=== PATIENT | male | born 1955 | race Caucasian/White ===

== ENCOUNTER 2025-05-05 12:25 | Inpatient (IN) | payer MEDICARE, MEDICAID ==
[~2025-05-05] VITALS: Ht 172.7 cm; Wt 79.0 kg
[2025-05-05 12:33] VITALS: O2SAT 100
[2025-05-05] MEDS: PIPERACILLIN/TAZO 3.375G/50ML 50 ML IV ONE (13:54)
[2025-05-05] MEDS: SODIUM CHLORIDE 0.9% (SEPSIS BOLUS) IV ONE (13:55)
[2025-05-05 14:15] LABS: BG BASE EXCESS -5.7 mmol/L (-2.0-3.0); BG CARBOXYHEMOGLOBIN 1.0 % (0.5-1.5); BG DEOXYHEMOGLOBIN 2.9 % (0.0-5.0); BG FRACTION INSPIRED OXYGEN 21; BG HCO3 ACT 18.2 mmol/L (21.0-28.0); BG METHEMOGLOBIN 0.3 % (0.5-1.5); BG OXYGEN SATURATION 97.1 % (94.0-98.0); BG OXYHEMOGLOBIN 95.8 % (94.0-98.0); BG PCO2 31.0 mmHg (35.0-48.0); BG PH 7.387 (7.350-7.450); BG PO2 94.6 mmHg (83.0-108.0); BG SAMPLE SITE RIGHT RADIAL; BG TOTAL HEMOGLOBIN 12.5 g/dL (13.5-17.5); BG VENT MODE ROOM AIR
[2025-05-05 14:41] LABS: BASOPHILS % 0.8 % (0.0-2.0); EOSINOPHILS % 1.9 % (0.0-5.0); HEMATOCRIT. 39.5 % (42.0-52.0); HEMOGLOBIN. 13.4 g/dL (14.0-18.0); LYMPHOCYTES % 32.9 % (20.0-50.0); MEAN PLATELET VOLUME 8.7 fl (7.4-10.4); MONOCYTES % 7.0 % (2.0-8.0); NEUTROPHILS % 57.4 % (40.0-76.0); PLATELET 242 x1000/uL (130-400); RED BLOOD CELL COUNT 4.37 mill/uL (4.7-6.1); RED CELL DISTRIBUTION WIDTH 14.0 % (11.6-14.6)
[2025-05-05 14:50] LABS: CREATININE 2.2 mg/dL (0.6-1.3); TROPONIN I HIGH SENSITIVITY 6 ng/L (3.0-53)
[2025-05-05 14:51] LABS: PROTEIN TOTAL 6.8 g/dL (6.0-8.3); UREA NITROGEN BLOOD 16 mg/dL (9-23)
[2025-05-05 14:52] LABS: ASPARTATE AMINOTRANSFERASE 29 IU/L (<34); BILIRUBIN DIRECT 0.1 mg/dL (<=3.0)
[2025-05-05 14:53] LABS: BILIRUBIN TOTAL 0.5 mg/dL (0.1-1.0)
[2025-05-05 15:06] LABS: INR 1.0
[2025-05-05 15:44] LABS: CLARITY URINE CLEAR (CLEAR); GLUCOSE URINE 3+ (NEGATIVE); KETONES URINE NEGATIVE (NEGATIVE); LEUKOCYTE ESTERASE URINE NEGATIVE (NEGATIVE); NITRITE URINE NEGATIVE (NEGATIVE); OCCULT BLOOD URINE NEGATIVE (NEGATIVE); PH URINE 5.5 (4.5-8.0); PROTEIN URINE 2+ (NEGATIVE); SPECIFIC GRAVITY URINE 1.012 (1.005-1.030); UROBILINOGEN URINE 0.2 E.U./dL (0.2-1.0)
[2025-05-05 17:13] LABS: COLOR URINE STRAW (YELLOW)
[2025-05-05] MEDS: INSULIN REGULAR (HUMULIN R) 1000UNITS/10ML VIAL SUBCUT ONE (17:21)
[2025-05-05 17:25] LABS: BACTERIA URINE NONE SEEN; MUCUS URINE 1+ /lpf (NONE/TRACE); RBC URINE NONE SEEN /hpf (0-2); SQUAMOUS EPITHELIAL CELL URINE RARE /lpf (RARE/1+); WBC URINE NONE SEEN /hpf (0-2)
[2025-05-05] MEDS: MORPHINE SULFATE 4 MG/ML INJ (FOR IV/IM USE) IV ONE (17:30)
[2025-05-05] MEDS: ONDANSETRON HCL 4MG/2ML INJ IV ONE (17:30)
[2025-05-05 21:30] VITALS: BP 161/82; PULSE 81; RESP 20; TEMP 36.9; O2SAT 98
[2025-05-05] MEDS ORDERED: IOHEXOL-350 100 ML BOTTLE ONE (21:53)
[2025-05-05] MEDS ORDERED: ASPI-1497 MT (22:47)
[2025-05-05] MEDS ORDERED: ATOR20TA MT (22:47)
[2025-05-05] MEDS ORDERED: SODI325T PO (22:47)
[2025-05-05] MEDS ORDERED: LISI10TA26 MT (22:47)
[2025-05-05] MEDS ORDERED: INSU100I28 SQ (22:47)
[2025-05-05 23:04] VITALS: BP 161/82; PULSE 81; RESP 20; TEMP 36.974
[2025-05-05] MEDS ORDERED: PNEUMOCOCCAL 20-VAL CONJ-DIP CRM 0.5ML IM ONE (23:15)
[2025-05-05] MEDS ORDERED: ZOLPIDEM TARTRATE 5MG TABLET PO PRN (23:45)
[2025-05-05] MEDS ORDERED: ACETAMINOPHEN 325MG TABLET PO PRN (23:45)
[2025-05-05] MEDS ORDERED: ONDANSETRON HCL 4MG/2ML INJ IV PRN (23:45)
[2025-05-05] MEDS ORDERED: MAGNESIUM/ALUMINUM HYDROXIDE/SIMETHICONE 30ML UDC PO PRN (23:45)
[2025-05-05] MEDS ORDERED: DIPHENHYDRAMINE 50MG/ML VIAL IV PRN (23:45)
[2025-05-05] MEDS ORDERED: DEXTROSE 50% WATER 50ML SYRINGE IV PRN (23:45)
[2025-05-06] VITALS: BP 145/81; PULSE 80; RESP 20; TEMP 37.1; O2SAT 99
[2025-05-06] MEDS: CLONIDINE 0.1MG TABLET PO PRN (00:20)
[2025-05-06] MEDS: SODIUM CHLORIDE 0.9% 1,000 ML IV SCH (00:20)
[2025-05-06] MEDS: FAMOTIDINE 20MG TABLET PO SCH (00:20)
[2025-05-06] MEDS: INSULIN GLARGINE 100 UNITS/ML SUBCUT SCH ×2 (00:23→21:43)
[2025-05-06 04:00] VITALS: BP 122/71; PULSE 82; RESP 20; TEMP 36.5; O2SAT 99
[2025-05-06] MEDS: BLOOD SUGAR DIAGNOSTIC STRIP TEST SCH (06:55)
[2025-05-06 07:25] LABS: BASOPHILS % 0.9 % (0.0-2.0); EOSINOPHILS % 2.6 % (0.0-5.0); HEMATOCRIT. 35.6 % (42.0-52.0); HEMOGLOBIN. 12.0 g/dL (14.0-18.0); LYMPHOCYTES % 32.2 % (20.0-50.0); MEAN PLATELET VOLUME 8.2 fl (7.4-10.4); MONOCYTES % 5.7 % (2.0-8.0); NEUTROPHILS % 58.6 % (40.0-76.0); PLATELET 222 x1000/uL (130-400); RED BLOOD CELL COUNT 3.88 mill/uL (4.7-6.1); RED CELL DISTRIBUTION WIDTH 14.1 % (11.6-14.6)
[2025-05-06 07:44] LABS: CREATININE 1.8 mg/dL (0.6-1.3); UREA NITROGEN BLOOD 13 mg/dL (9-23)
[2025-05-06 07:46] LABS: PHOSPHORUS 2.7 mg/dL (2.5-4.9)
[2025-05-06 08:00] VITALS: BP 134/83; PULSE 67; RESP 18; TEMP 36.4; O2SAT 98
[2025-05-06] MEDS: INSULIN LISPRO 100 UNITS/ML SUBCUT SCH (08:10)
[2025-05-06] MEDS: METOPROLOL TARTRATE 50MG TABLET PO SCH (08:18)
[2025-05-06] MEDS: AMLODIPINE 5MG TABLET PO SCH (08:18)
[2025-05-06 12:00] VITALS: BP 147/71; PULSE 73; RESP 18; TEMP 36.2; O2SAT 99
[2025-05-06 16:00] VITALS: BP 145/85; PULSE 67; RESP 16; TEMP 35.9; O2SAT 100
[2025-05-06] MEDS: ACETAMINOPHEN 325MG TABLET PO PRN (16:42)
[2025-05-06] MEDS: MAGNESIUM 2 G PREMIX 50 ML IV SCH (17:56)
[2025-05-06 20:00] VITALS: BP 134/74; PULSE 70; RESP 20; TEMP 36.5; O2SAT 100
[2025-05-06] MEDS: LISINOPRIL 10MG TABLET PO SCH (21:02)
[2025-05-07] VITALS: BP 121/65; PULSE 68; RESP 20; TEMP 36.9; O2SAT 100
[2025-05-07 04:00] VITALS: BP 126/60; PULSE 70; RESP 20; TEMP 36.8; O2SAT 100
[2025-05-07 08:00] VITALS: BP 141/76; PULSE 77; RESP 18; TEMP 36.4; O2SAT 97
[2025-05-07] MEDS ORDERED: ATOR20TA MT (13:07)
[2025-05-07] MEDS ORDERED: INSU100I28 SQ (13:07)
[2025-05-07] MEDS ORDERED: ASPI-1497 MT (13:07)
[2025-05-07] MEDS ORDERED: LISI20TA31 PO (13:09)
[2025-05-07] MEDS: INSULIN GLARGINE 100 UNITS/ML SUBCUT SCH (15:30)
[2025-05-07 15:37] VITALS: BP 132/68; PULSE 77; RESP 18; TEMP 97.6
== END 2025-05-07 17:48 | disposition home or self-care (01) | DRG 638 ==
LOC: ER 12:25 → EDBEDREQTM 16:01 → EDBEDREQSVC 16:01 → EDBEDREQ 16:01 → 7WST 19:26 → EDBEDREQ 19:37 → EDBEDREQTM 19:37 → ENRESERV 20:26
PROVIDERS: ADMIT Internal Medicine; ATTEND Internal Medicine
DX: E11.00 Type 2 diabetes mellitus with hyperosmolarity without nonketotic hyperglycemic-hyperosmolar coma (NKHHC) (principal); N17.9 Acute kidney failure, unspecified; I10 Essential (primary) hypertension; I71.60 Thoracoabdominal aortic aneurysm, without rupture, unspecified; E83.42 Hypomagnesemia; I95.9 Hypotension, unspecified; I71.43 Infrarenal abdominal aortic aneurysm, without rupture; Z79.4 Long term (current) use of insulin; Z79.82 Long term (current) use of aspirin; Z79.899 Other long term (current) drug therapy
CPT/HCPCS: 36415; 36600; 71045; 74174; 74176; 80048; 80076; 81003; 82010; 82375; 82805; 82962; 83605; 83735; 83930; 84100; 84145; 84484; 85025; 93005; 99291; J1815; J2543; J3475; J7030; Q9967